=== PATIENT | male | born 1950 | race Caucasian/White ===

== ENCOUNTER 2024-01-23 08:08 | Outpatient (RCR) | payer MEDICARE, OTHER, SELFPAY | END 2024-01-23 23:59 | disposition home or self-care (01) | LOC: RST 08:08 | PROVIDERS: ATTENDING PHYSICIAN Family Medicine | DX: S06.9X1S Unspecified intracranial injury with loss of consciousness of 30 minutes or less, sequela (principal); G20.A1 Parkinson's disease without dyskinesia, without mention of fluctuations; R41.841 Cognitive communication deficit; Z73.6 Limitation of activities due to disability | CPT/HCPCS: 96125; 97110; 97112; 97116; 97129; 97130; 97163; 97167; 97530; 97535 ==

== ENCOUNTER 2024-02-27 12:58 | Outpatient (RCR) | payer MEDICARE, OTHER, SELFPAY | END 2024-02-27 23:59 | disposition home or self-care (01) | LOC: RST 12:58 | PROVIDERS: ATTENDING PHYSICIAN Family Medicine | DX: S06.9X1S Unspecified intracranial injury with loss of consciousness of 30 minutes or less, sequela (principal); R41.89 Other symptoms and signs involving cognitive functions and awareness; G20.A1 Parkinson's disease without dyskinesia, without mention of fluctuations; Z73.6 Limitation of activities due to disability | CPT/HCPCS: 97110; 97112; 97116; 97129; 97130; 97530; 97535 ==

== ENCOUNTER 2024-03-25 11:04 | Outpatient (RCR) | payer MEDICARE, OTHER, SELFPAY | END 2024-03-25 23:59 | disposition home or self-care (01) | LOC: RST 11:04 | PROVIDERS: ATTENDING PHYSICIAN Family Medicine | DX: R41.841 Cognitive communication deficit (principal); S06.9X1S Unspecified intracranial injury with loss of consciousness of 30 minutes or less, sequela; G20.A1 Parkinson's disease without dyskinesia, without mention of fluctuations; Z73.6 Limitation of activities due to disability | CPT/HCPCS: 97110; 97112; 97116; 97129; 97130; 97530; 97535 ==

== ENCOUNTER 2024-04-06 10:57 | Outpatient (RCR) | payer MEDICARE, OTHER, SELFPAY | END 2024-04-06 15:52 | disposition home or self-care (01) | LOC: RST 10:57 | PROVIDERS: ATTENDING PHYSICIAN Family Medicine | DX: R41.841 Cognitive communication deficit (principal); S06.9X1S Unspecified intracranial injury with loss of consciousness of 30 minutes or less, sequela; G20.A1 Parkinson's disease without dyskinesia, without mention of fluctuations; Z73.6 Limitation of activities due to disability | CPT/HCPCS: 97110; 97112; 97116; 97129; 97130; 97530; 97535 ==

== ENCOUNTER → 2024-04-20 09:57 | Outpatient (REF) | payer MEDICARE, OTHER, SELFPAY | LOC: HWRAD 09:57 | PROVIDERS: ATTENDING PHYSICIAN Physician Assistant Medical | DX: M25.552 Pain in left hip (principal); M79.652 Pain in left thigh | CPT/HCPCS: 73502; 73552 ==

== ENCOUNTER → 2024-07-15 07:36 | Outpatient (REF) | payer MEDICARE, OTHER, SELFPAY ==
[2024-07-15 11:09] LABS: Hematocrit 43.2 % (39.0-52.0); Mean Corp Hgb Conc. 34.7 g/dL (33.0-37.0); Mean Corpuscular Hgb 31.1 pg (27.0-31.0); Mean Corpuscular Volume 89.6 fL (80.0-94.0); Mean Platelet Volume 9.1 fL (7.4-10.4); Platelet Count 180 10^3/uL (130-400); Red Blood Cell Count 4.82 10^6/uL (4.70-6.10); Red Cell Dist. Width 12.7 % (11.5-14.5); White Blood Cell Count 6.4 10^3/uL (4.8-10.8)
[2024-07-15 11:38] LABS: Blood Urea Nitrogen 18 mg/dl (9-20); Calcium 9.1 mg/dl (8.4-10.2); Carbon Dioxide 25 mmol/L (22-30); Chloride 103 mmol/L (98-107); Glucose 90 mg/dl (70-99); Potassium 4.2 mmol/L (3.5-5.1); Sodium 140 mmol/L (135-145); eGFR > 60.00
== END ==
LOC: SDSPAT 07:36
PROVIDERS: ATTENDING PHYSICIAN Urology; FAMILY PHYSICIAN Family Medicine
DX: Z01.818 Encounter for other preprocedural examination (principal)
CPT/HCPCS: 80048; 85027

== ENCOUNTER 2024-07-20 06:19 | Day surgery (SDC) | payer MEDICARE, OTHER, SELFPAY ==
[2024-07-15 07:49] VITALS: BMI 25.7
[2024-07-20] VITALS (11 sets, daily range): BP systolic 128–160; BP diastolic 88–108; BMI 25.7
[2024-07-20] MEDS: NSS 250 IV (10:42)
== END 2024-07-20 11:28 | disposition home or self-care (01) ==
LOC: SDS 06:19
PROVIDERS: ATTENDING PHYSICIAN Urology
DX: N32.81 Overactive bladder (principal); R35.0 Frequency of micturition; N39.41 Urge incontinence
CPT/HCPCS: 64590; 64561; 72170; 76000; C1778; C1883; L8681

== ENCOUNTER 2024-07-29 06:12 | Day surgery (SDC) | payer MEDICARE, OTHER, SELFPAY ==
[2024-07-29] VITALS (8 sets, daily range): BP systolic 137–167; BP diastolic 82–102; BMI 25.7
== END 2024-07-29 10:45 | disposition home or self-care (01) ==
LOC: SDS 06:12
PROVIDERS: ATTENDING PHYSICIAN Urology
DX: N32.81 Overactive bladder (principal); R35.0 Frequency of micturition; N39.41 Urge incontinence
CPT/HCPCS: 64590; C1767; C1787

== ENCOUNTER 2024-12-17 14:00 | Outpatient (RCR) | payer MEDICARE, OTHER, SELFPAY | END 2024-12-17 23:59 | disposition home or self-care (01) | LOC: ROT 14:00 | PROVIDERS: ATTENDING PHYSICIAN Family Medicine | DX: R26.81 Unsteadiness on feet (principal); R53.1 Weakness; G20.C Parkinsonism, unspecified; R47.01 Aphasia; F03.B18 Unspecified dementia, moderate, with other behavioral disturbance; R26.89 Other abnormalities of gait and mobility; Z73.6 Limitation of activities due to disability; R26.2 Difficulty in walking, not elsewhere classified; R29.6 Repeated falls | CPT/HCPCS: 96125; 97110; 97112; 97116; 97163; 97167; 97530; 97535; 97550 ==

== ENCOUNTER 2025-07-13 08:44 | Emergency (ER) | payer MEDICARE, OTHER, SELFPAY ==
[2025-07-13 08:45] VITALS: BP 134/83
[2025-07-13] MEDS: TYLENOL 1000 MG PO (10:19)
--- NOTE | 2025-07-13 10:35 | ED.GENMED ---
History of Present Illness
General
Chief Complaint: Back Pain
Time Seen by Provider: 07/13/25 09:13
History of Present Illness
History of Present Illness:
see MDM
Past History
Past History
ED Past Medical History: HTN, Hypercholesterolemia and Other (Parkinson's)
ED Past Surgical History: None
Phy Exam
Physical Exam
Physical Exam:
GENERAL: Alert , in no apparent distress, comfortable at rest
HEAD: NCAT
NECK: no midline tenderness, active ROM intact, no paraspinal muscle tenderness;
CARDIAC: Regular rate and rhythm, no edema
LUNGS: Clear breath sounds bilaterally, no acute respiratory distress, no wheezes/rales/rhonchi
ABDOMEN: Soft, without focal tenderness, no r/g, no cvat, normal bowel sounds, nondistended
NEUROLOGICAL: Alert and oriented, laughs inappropriately, smiles frequently, no focal neuro deficits, CN intact, 5/5 strength, sensation intact,, ambulates with a walker, once he gets up he seems pretty steady, he externally rotates his left hip
chronically when he steps this is acute
SKIN: Warm and dry,
MUSCULOSKELETAL: Hips and legs appear normal on exam leg
Patient has no tenderness to palpation of the hips bilaterally
Able to straight leg raise
Back: No midline tenderness, negative straight leg raise, seems to have some pain with changing position like going from lying to sitting or sitting to standing significantly tender on exam and no bruising
PSYCH: Smiles and appropriately, TBI
Course
Orders/Labs/Results
Orders:
Orders
07/13/25 10:10
Acetaminophen [Tylenol] 1,000 mg PO NOW STA
Lumbar Spine Complete, 4 View [CR Lumbar Spine Comp Min 4 Vw*] Urgent
Comment:
Reason For Exam: low back p0ain, fall
Pelvis, 1 or 2 Views CR [CR Pelvis - 1 Or 2 Views ] Urgent
Comment:
Reason For Exam: fall
07/13/25 10:11
CT Head W/o Iv Contrast Urgent
Comment:
Reason For Exam: unwitnessed fall
07/13/25 12:14
Ibuprofen [Motrin] 400 mg PO NOW STA
07/13/25 13:09
Case Management Consult ONCE
Case Management Consult: Discharge Planning
Vital Signs
Initial and Last Documented VS:
Initial Vital Signs
Temp Pulse Resp BP Pulse Ox
36.5 C 57 18 134/83 100
07/13/25 08:45 07/13/25 08:45 07/13/25 08:45 07/13/25 08:45 07/13/25 08:45
Last Documented Vital Signs
Temp Pulse Resp BP Pulse Ox
36.5 C 60 18 148/91 97
07/13/25 08:45 07/13/25 12:11 07/13/25 12:11 07/13/25 12:11 07/13/25 12:11
MDM/Problems Addressed
Differential Diagnosis Includes:
see MDM
MDM/Problems Addressed:
Note:
CHIEF COMPLAINT(S)
Fall with lower back pain and balance issues
HISTORY OF PRESENT ILLNESS
The patient is a 75-year-old male with a known history of Parkinson�s disease and a past brain bleed, presenting after a fall that occurred around 6:15 AM. Per the patients spouse, the patient fell while in the kitchen, for which he attributes the
fall to catching his foot on something and falling backward. He reported that he didnt lose consciousness but felt sweaty after the fall. The patient managed to stand up unassisted by grasping a chair, although he was described as shaky and sweating
profusely. He later reported lower back pain, described as significant but not radiating down the legs or associated with numbness or tingling. There is no reported loss of bowel or bladder control. The fall did involve impact, but no head injury is
reported currently.
The spouse notes that issues with balance have been troublesome, suspected to be related to his history of Parkinson�s and not exacerbated by a specific recent change in blood pressure management. He regularly uses a walker, which was not within
reach at the time of the fall, contributing to the incident. The patient is on levodopa-carbidopa for Parkinsons and has previously been monitored for blood pressure control.
The patients spouse reports the patients history of a traumatic brain injury two years ago from a fall, which resulted in a brain bleed and temporary hospital admission. The fall had affected his vision at the time but did not necessitate surgical
intervention such as a craniotomy.
CHRONIC MEDICAL CONDITIONS SIGNIFICANTLY AFFECTING CARE
- Parkinson�s disease
- History of traumatic brain injury with previous brain bleed
SOCIAL DETERMINANTS AFFECTING HEALTH
The patient has a supportive spouse who provides information on his condition, which assists with his care management.
REVIEW OF SYSTEMS
- General: No reported loss of consciousness during the fall.
- Musculoskeletal: Pain in the lower back, no reported fractures or significant injuries post-fall.
- Neurological: History of balance issues, not currently experiencing numbness or tingling in the extremities.
- Skin: No bruising or external injuries discussed.
PHYSICAL EXAM
Nursing notes reviewed and vital signs reviewed.
- Musculoskeletal: Reports of lower back pain, patient shows discomfort when moving, especially when getting up or down.
- Neurological: Noted issues with balance, requiring a walker for mobility.
PROBLEM LIST
Acute:
- Fall with resultant lower back pain.
Chronic:
- Parkinson�s disease
- History of traumatic brain injury with prior brain bleed
PLAN
Order lumbar spine and pelvis X-rays to rule out fractures.
Administer acetaminophen for pain management.
Ensure patient is using a walker consistently to prevent further falls.
DIFFERENTIAL DIAGNOSIS
The Differential Diagnosis includes, in no particular order and is not limited to:
1. Parkinsonian crisis
2. Orthostatic hypotension
3. Lumbar fracture
4. Vertebral compression fracture
5. Sciatica
6. Transient ischemic attack (TIA)
7. Cerebral hypoperfusion event
8. Syncope due to arrhythmia
9. Vestibular dysfunction
10. Mechanical fall due to environmental hazard
07/13/25 - 12:14
The patients x-ray indicates an L2 compression fracture, though the timing of the fracture is indeterminate. No signs of pelvic or hip fractures were noted, and the head scan returned normal. Notably, there is an unidentified spot on the bone near
the fracture site, possibly representing scarring or a blastic lesion. An outpatient MRI is recommended for further assessment. The patient does not have a cancer history, making a malignant lesion unlikely.
The current pain management includes considering short-term ibuprofen use, despite typically avoiding due to renal concerns, to manage acute bruising and pain, with a dose of 400 mg approved. Lidocaine patches may also be utilized for additional
pain relief. Plan to have a physical therapist assess mobility and determine if therapy extension is needed post-injury. The patient is deemed fit for discharge with the possibility of extending home-based physical therapy contingent on case
management input.
case managtement will extend PT at home
*Pulse Oximetry
SaO2: 100
Oxygen Mode of Delivery: Room air
Patient hypoxic: no (97)
*Critical Care Note
Total Time (30-74mins, 75-104mins- exclusive of procedures): Not Applicable
ED Attending Note
-
Portions of this chart may have been created with voice recognition software.� Occasional wrong word or��sound alike� substitutions may have occurred due to the inherent limitations of voice recognition software.
Discharge Plan
Departure
Patient Disposition: Home (Routine Discharge)
Date of Disposition: 07/13/25
Time of Disposition: 13:12
Patient with high blood pressure during this ER visit?: Yes
Condition: Fair
Covid-19: Not Applicable
Discharge Problem:
Fall, Compression fracture
Instructions: Vertebral Compression Fracture ED
Prescriptions:
No Action
atorvastatin [Lipitor] 40 MG tablet
40 mg PO DAILY
aspirin 81 MG tablet,delayed release (DR/EC)
81 mg PO DAILY
tamsulosin [Flomax] 0.4 MG capsule
0.8 mg PO DAILY
trazodone 50 mg Tablet
100 mg PO HS
melatonin 3 mg Tablet
3 mg PO HS PRN (Reason: insomnia)
gabapentin 300 mg Capsule
600 mg PO HS
coenzyme Q10 [CoQ-10] 100 mg Capsule
100 mg PO DAILY
carbidopa-levodopa 25-100 mg Tablet
1 tab PO HS
acetaminophen [Tylenol Extra Strength] 500 mg Capsule
1,000 mg PO Q6H PRN (Reason: pain)
ibuprofen [Motrin] 100 mg Tablet,Chewable
200 mg PO Q6H PRN (Reason: pain)
carbidopa-levodopa 25-100 mg Tablet
2 tab PO TID
Referrals:
Bernardo Aguilar MD [Family Provider, [facility]] - Follow up in 5-7 days
Activity Restrictions/Additional Instructions:
Your x-rays show a compression fracture of your lumbar spine and L2 which could be acute or it could be from previous injury. You also had a abnormality in the bone that needs further workup with an MRI. Please show the report to your family
doctor. For now take Tylenol 3 times a day for pain. You can also apply a lidocaine patch 12 hours on, 12 hours off as needed for pain. Once a day you can take an ibuprofen 400 mg, that is 2 [id number] tablets which can also help with the
back pain for 2 to 3 days in a row.
Return for inability to walk, frequent falls, weakness or any other concern
Interventions
Interventions:
*Risk Screen - Suicide Last Done: 07/13/25 08:45
*General Assessment Last Done: 07/13/25 08:45
*Neglect/Abuse Screening Last Done: 07/13/25 08:45
*Nursing Disposition Last Done: 07/13/25 13:23
ED-Musculoskeletal Assessment Last Done: 07/13/25 09:30
Discharge Date and Time
Discharge Date/Time: 07/13/25 13:23
Print Language: TURKISH
[2025-07-13 12:11] VITALS: BP 148/91
[2025-07-13] MEDS: MOTRIN 400 MG PO (12:26)
--- NOTE | 2025-07-13 13:57 | CM ---
Patient seen at bedside in ED with . Patient current with speech but not therapy. CM sent updated referral for therapy via [facility]. CM spoke with merchandising representative on phone. Patient is current and they will be watching for home care orders.
Patient to transport home. CM will continue to follow for discharge planning needs.
PLan; restart therapy with [facility].
== END 2025-07-13 13:23 | disposition home or self-care (01) ==
LOC: EMR 08:44
PROVIDERS: EMERGENCY PHYSICIAN Emergency Medicine; FAMILY PHYSICIAN Family Medicine
DX: M54.50 Low back pain, unspecified (principal); W19.XXXA Unspecified fall, initial encounter; I10 Essential (primary) hypertension; E78.00 Pure hypercholesterolemia, unspecified; G20.A1 Parkinson's disease without dyskinesia, without mention of fluctuations; Z87.820 Personal history of traumatic brain injury
CPT/HCPCS: 99284; 70450; 72110; 72170